=== PATIENT | male | born 1985 | race Two or more races ===

== ENCOUNTER 2022-12-23 14:02 | Emergency (ER) | payer OTHER ==
[~2022-12-23] VITALS: Ht 175.3 cm; Wt 83.9 kg
== END 2022-12-23 22:37 | disposition home or self-care (01) ==
LOC: ER 14:02
DX: S52.532A Colles' fracture of left radius, initial encounter for closed fracture (principal); S80.02XA Contusion of left knee, initial encounter; S80.01XA Contusion of right knee, initial encounter; S40.012A Contusion of left shoulder, initial encounter; V00.131A Fall from skateboard, initial encounter; Y93.89 Activity, other specified; Y92.89 Other specified places as the place of occurrence of the external cause; Y99.9 Unspecified external cause status

== ENCOUNTER 2023-07-11 07:22 | Emergency (ER) | payer OTHER ==
[~2023-07-11] VITALS: Ht 177.8 cm; Wt 74.8 kg
== END 2023-07-11 09:09 | disposition home or self-care (01) ==
LOC: ER 07:22
DX: S01.80XA Unspecified open wound of other part of head, initial encounter (principal); W19.XXXA Unspecified fall, initial encounter; Y93.89 Activity, other specified; Y92.89 Other specified places as the place of occurrence of the external cause; Y99.8 Other external cause status